=== PATIENT | female | born 1975 | race Two or more races ===

== ENCOUNTER 2019-05-29 17:08 | Emergency (ER) | payer OTHER ==
[~2019-05-29] VITALS: Ht 157.5 cm; Wt 68.0 kg
[2019-05-29] MEDS ORDERED: LEVOTHYROXINE25 MCG (17:30)
== END 2019-05-29 19:24 | disposition home or self-care (01) ==
LOC: ER 17:08
DX: S61.221A Laceration with foreign body of left index finger without damage to nail, initial encounter (principal); W26.8XXA Contact with other sharp object(s), not elsewhere classified, initial encounter; Y93.89 Activity, other specified; Y92.69 Other specified industrial and construction area as the place of occurrence of the external cause; Y99.8 Other external cause status